=== PATIENT | female | born 1980 | race Two or more races ===

== ENCOUNTER 2017-01-18 03:20 | Emergency (ER) | payer MEDICAID ==
[~2017-01-18] VITALS: Ht 160 cm; Wt 60.0 kg
[2017-01-18] MEDS ORDERED: MORPHINE SULFATE 4 MG/ML, 1ML ONE (04:55)
[2017-01-18] MEDS ORDERED: ONDANSETRON 2MG/ML, 2ML ONE (04:55)
[2017-01-18] MEDS ORDERED: FAMOTIDINE 20 MG/2 ML ONE (04:55)
[2017-01-18] MEDS ORDERED: ONDANSETRON 2MG/ML, 2ML IVPush ONE (05:00)
[2017-01-18] MEDS ORDERED: SODIUM CHLORIDE FLUSH 10ML SYR IVF ONE (05:00)
[2017-01-18] MEDS ORDERED: SODIUM CHLORIDE 0.9% 1,000ML IVBOLUS ONE (05:00)
[2017-01-18] MEDS ORDERED: FAMOTIDINE 20 MG/2 ML IVP ONE (05:00)
[2017-01-18] MEDS ORDERED: MORPHINE SULFATE 4 MG/ML, 1ML IVPush PRN (05:00)
[2017-01-18 05:25] LABS: HEMOGLOBIN 14.1 g/dL (11.7-16.4)
[2017-01-18] MEDS ORDERED: FAMOTIDINE 20 MG/2 ML IVPush ONE (05:30)
[2017-01-18 05:31] LABS: ASPARTATE AMINO TRANSFERASE 13 U/L (15-37); BLOOD UREA NITROGEN 9 mg/dL (7-18)
[2017-01-18 06:53] VITALS: BP 107/62
== END 2017-01-18 07:32 | disposition home or self-care (01) ==
LOC: ED 06:06
DX: K29.00 Acute gastritis without bleeding (principal); F12.10 Cannabis abuse, uncomplicated
CPT/HCPCS: 36415; 76700; 80053; 81003; 83690; 84703; 85025; 96361; 96374; 96375; 99285; J2405; J7030; S0028